=== PATIENT | female | born 1975 | race Caucasian/White ===

== ENCOUNTER 2016-11-27 16:10 | Emergency (ER) | payer SELFPAY ==
[~2016-11-27] VITALS: Ht 154.9 cm; Wt 54.4 kg
[2016-11-27 16:20] VITALS: BP 150/72
--- NOTE | 2016-11-27 16:24 | PHYS DOC ---
Past Medical History Past Medical History: CAD Past Surgical History: , Tonsillectomy Adult General Chief Complaint Chief Complaint: ANKLE PROBLEM HPI HPI Patient is a 41 year old female presents to the emergency department with a history of left ankle pain and discomfort after rolling the ankle on Friday while at a dream concert. Patient states she was seen Friday and the facility was unable to determine if there was a fracture for there was to much swelling. Patient has an kailey wrap and air stirrup splint in place she is currently using crutches to ambulate. Patient states she took Ibuprofen at 3 pm today and [place] at 2;30 pm today. Patient states she is still having pain 8/10 sharp in nature Review of Systems Review of Systems Constitutional: Denies fever or chills [] Eyes: Denies change in visual acuity, redness, or eye pain [] HENT: Denies nasal congestion or sore throat [] Respiratory: Denies cough or shortness of breath [] Cardiovascular: No additional information not addressed in HPI [] GI: Denies abdominal pain, nausea, vomiting, bloody stools or diarrhea [] : Denies dysuria or hematuria [] Musculoskeletal: Denies back pain or joint pain [] Integument: Denies rash or skin lesions. Left lateral ankle pain Neurologic: Denies headache, focal weakness or sensory changes [] Endocrine: Denies polyuria or polydipsia [] Allergies Allergies Allergies Coded Allergies Type Severity Reaction Last Updated Verified Penicillins Allergy Unknown 11/27/16 Yes ketorolac Allergy Unknown 11/27/16 Yes Physical Exam Physical Exam Constitutional: Well developed, well nourished, no acute distress, non-toxic appearance. [] HENT: Normocephalic, atraumatic, bilateral external ears normal, oropharynx moist, no oral exudates, nose normal. [] Eyes: PERRLA, EOMI, conjunctiva normal, no discharge. [] Neck: Normal range of motion, no tenderness, supple, no stridor. [] Cardiovascular:Heart rate regular rhythm Lungs & Thorax: no respiratory distress noted Skin: Warm, dry, no erythema, no rash. [] Back: No tenderness Extremities: left lateral ankle tenderness, no cyanosis, no clubbing, ROM intact , no edema. No bruising, no significant swelling noted to the ankle. Peripheral pulses 2+ cap refill brisk < 2 seconds. Good sensation noted to the toes. She is able to move toes without difficulty. Neurologic: Alert and oriented X 3, normal motor function, normal sensory function, no focal deficits noted. [] Psychologic: Affect normal, judgement normal, mood normal. [] Current Patient Data Vital Signs Vital Signs Date Time Temp Pulse Resp B/P (MAP) Pulse Ox O2 Delivery O2 Flow Rate FiO2 11/27/16 16:20 98.4 104 20 97 Room Air 98.4 EKG EKG [] Radiology/Procedures Radiology/Procedures [][facility] [address] [place] [address] IMAGING REPORT Signed PATIENT: HUBER JULIEN ACCOUNT: [id number] : 1975 LOCATION: ER AGE: 41 SEX: F EXAM STATUS: REG ER ORD. PHYSICIAN: NANCY BLANC APRN REASON: fell friday night pain to lateral ankle PROCEDURE: ANKLE LEFT 3V Left ankle radiograph 11/27/2016 at 1626 hours Indication: Fall 4 days ago with swelling and bruising of the lateral ankle Comparison: None available Technique: 3 views of the left ankle are provided. Findings: There is no acute fracture or dislocation. Tibial plafond and talar dome are intact. The ankle mortise is congruent. No joint space narrowing. Mild soft tissue swelling along the lateral malleolus. No osseous erosion or soft tissue gas. Bone mineralization is within normal limits. Impression: No acute fracture or dislocation. Mild soft tissue swelling about the lateral malleolus. DICTATED and SIGNED BY: CRYSTAL GORDON MD DATE: 11/27/16 1642 CC: NANCY BLANC APRN; NO PCP; NON,STAFF ~ Course & Med Decision Making Course & Med Decision Making Pertinent Labs and Imaging studies reviewed. (See chart for details) X-rays are negative for bony abnormalities. Continue to wear the kailey wrap and the air stirrup splint for the next 7-10 days. Ice packs on 20 minutes and off 20 minutes several times a day. Elevation as much as much as possible. Ibuprofen for pain and discomfort. Continue to use the crutches when ambulating , Followup with orthopedic in 5-7 days. Signs and symptoms to return to emergency department has been provided. Patient agrees with discharge instructions, treatment regimen and followup recommendations. [] Dragon Disclaimer Dragon Disclaimer This electronic medical record was generated, in whole or in part, using a voice recognition dictation system. Departure Departure Impression: Primary Impression: Left ankle sprain Disposition: HOME, SELF-CARE Condition: STABLE Referrals: SUZY MARTINEZ MD Patient Instructions: Ankle Sprain, [id number] Additional Instructions: X-rays were negative for bony abnormalities. Ibuprofen for pain and discomfort make sure you eat when taking this medication as it make cause upset stomach. If upset stomach occurs stop taking the medication. Ice packs on 20 minutes and off 20 minutes several times a day Elevation as much as possible Continue to use the crutches when ambulating Continue to wear the kailey wrap and the air stirrup splint for the next 10 days. Followup with orthopedic in 5-7 days Return to emergency department as needed for signs and symptoms that become worse. NANCY BLANC APRN Nov 27, 2016 16:24
--- NOTE | 2016-11-27 16:46 | RAD ---
Left ankle radiograph 11/27/2016 at 1626 hours Indication: Fall 4 days ago with swelling and bruising of the lateral ankle Comparison: None available Technique: 3 views of the left ankle are provided. Findings: There is no acute fracture or dislocation. Tibial plafond and talar dome are intact. The ankle mortise is congruent. No joint space narrowing. Mild soft tissue swelling along the lateral malleolus. No osseous erosion or soft tissue gas. Bone mineralization is within normal limits. Impression: No acute fracture or dislocation. Mild soft tissue swelling about the lateral malleolus.
== END 2016-11-27 17:01 | disposition home or self-care (01) ==
LOC: ER 16:10
DX: S93.402A Sprain of unspecified ligament of left ankle, initial encounter (principal); I25.10 Atherosclerotic heart disease of native coronary artery without angina pectoris; Z88.0 Allergy status to penicillin; Z88.6 Allergy status to analgesic agent; X50.9XXA Other and unspecified overexertion or strenuous movements or postures, initial encounter; Y93.89 Activity, other specified; Y99.8 Other external cause status; Y92.89 Other specified places as the place of occurrence of the external cause
CPT/HCPCS: 73610; 99284